=== PATIENT | female | born 1950 | race Caucasian/White ===

== ENCOUNTER 2019-01-03 09:21 | Inpatient (IN) ==
[2019-01-03] MEDS ORDERED: SODIUM CHLORIDE 0.9% 1,000 ML IV STA (10:30)
[2019-01-03 11:10] LABS: Apearance,Urine Slightly Hazy (Clear); Bacteria,Urine Occasional /HPF (Few); Bilirubin,Urine Negative (Negative); Blood, Urine Negative (Negative); Glucose,Urine (UA) Negative (Negative); Ketones,Urine Negative (Negative); Mucus,Urine Occasional /LPF (Occasional); Nitrite,Urine Negative (Negative); Protein,Urine Negative; RBC,Urine 3 /HPF (0-4); Squamous Epithelial Cell,Urine Occasional /HPF (0-10); Urine Color Yellow (Yellow); Urine Specific Gravity 1.006 (1.001-1.035); Urine Urobilinogen < 2.0 EU/DL (0.2-1.0); WBC,Urine 105 /HPF (0-6)
[2019-01-03 11:14] LABS: Basophils # 0.1 10*3/uL (0.0-0.2); Basophils % 0.6 % (0.0-0.8); Eosinophils # 0.1 10*3/uL (0.0-0.87); Eosinophils % 0.7 % (0.00-10.9); Hematocrit 36.8 VOL% (35.7-47.0); Hemoglobin 12.3 GM/DL (12.0-16.0); Immature Granulocytes % 0.7 %; Immature Granulocytes Absolute 0.07 #; Lymphocytes # 1.8 10*3/uL (1.4-4.0); Lymphocytes % 18.7 % (21.3-54.2); Mean Corpuscular HGB Conc 33.4 GM/DL (32-36); Mean Corpuscular Volume 95.3 FL (87-102); Mean Platelet Volume 9.5 FL (9.6-12.0); Neutrophils % 72.3 % (38.7-73.9); Platelet Count 279 T/CUMM (130-400); Red Blood Count 3.86 MC/CUMM (3.8-5.5); Red Cell Distribution Width 12.4 % (9.3-17.3); White Blood Count 9.8 T/CUMM (4-12)
[2019-01-03 11:23] LABS: PT Patient Result 10.8 SECS (9.6-12.2)
[2019-01-03 11:34] LABS: Alanine Aminotransferase 28 U/L (13-56); Albumin 3.7 G/DL (3.4-5.0); Alkaline Phosphatase 55 U/L (45-117); Aspartate Amino Transferase 21 U/L (0-37); Blood Urea Nitrogen 17 MG/DL (7-18); Calcium 8.9 MG/DL (8.5-10.1); Estimated Glom Filtration Rate 58 ML/MIN; Glucose 86 MG/DL (74-106); Osmolality,Calculated 270.1 MOS/KG (273-304); Total Protein 6.6 G/DL (6.4-8.3); Troponin I < 0.015 NG/ML (0.00-0.045)
[2019-01-03 11:41] LABS: Barbiturates Screen,Urine Negative (Negative); Benzodiazepines Screen,Urine Negative (Negative); Cannabinoid Screen,Urine Negative (Negative); Opiate Screen,Urine Negative (Negative); Phencyclidine Screen,Urine Negative (Negative)
[2019-01-03] MEDS ORDERED: cefTRIAXone 1,000 MG in SODIUM CHLORIDE 0.9% 100 ML IV STA (11:52)
[2019-01-03] MEDS ORDERED: ACETAMINOPHEN 325 MG TABLET PO PRN (12:14)
[2019-01-03] MEDS ORDERED: ONDANSETRON 4 MG/2 ML VIAL IV PRN (12:14)
[2019-01-03] MEDS ORDERED: DOCUSATE SODIUM 100 MG CAPSULE PO PRN (12:14)
[2019-01-03] MEDS ORDERED: POTASSIUM CHLORIDE 20 MEQ TABLET PO PRN (12:17)
[2019-01-03] MEDS: ENOXAPARIN 40 MG/0.4 ML SYRINGE SUBCUT SCH (14:00)
[2019-01-03] MEDS: buPROPion XL 150 MG TABLET PO SCH (14:00)
[2019-01-03] MEDS: DEXT 5% NACL 0.45% KCL 20 MEQ 20 MEQ/1,000 ML BAG IV SCH (14:04)
[2019-01-03] MEDS: VENLAFAXINE 75 MG TABLET PO SCH (20:58)
[2019-01-03] MEDS: SIMVASTATIN 10 MG TABLET PO SCH (20:58)
[2019-01-03] MEDS: POTASSIUM BICARB EFFERVESCENT 25 MEQ TABLET PO SCH (20:59)
[2019-01-04] MEDS: DEXT 5% NACL 0.45% KCL 20 MEQ 20 MEQ/1,000 ML BAG IV SCH ×2 (03:31→16:44)
[2019-01-04 05:37] LABS: Basophils # 0.1 10*3/uL (0.0-0.2); Basophils % 0.6 % (0.0-0.8); Eosinophils # 0.2 10*3/uL (0.0-0.87); Eosinophils % 2.2 % (0.00-10.9); Hematocrit 34.9 VOL% (35.7-47.0); Hemoglobin 11.5 GM/DL (12.0-16.0); Immature Granulocytes % 0.2 %; Immature Granulocytes Absolute 0.02 #; Lymphocytes # 2.8 10*3/uL (1.4-4.0); Lymphocytes % 32.7 % (21.3-54.2); Mean Corpuscular Volume 95.1 FL (87-102); Monocytes % 9.8 % (1.7-12.7); Neutrophils % 54.5 % (38.7-73.9); Platelet Count 269 T/CUMM (130-400); Red Blood Count 3.67 MC/CUMM (3.8-5.5); Red Cell Distribution Width 12.6 % (9.3-17.3); White Blood Count 8.5 T/CUMM (4-12)
[2019-01-04 05:52] LABS: Calcium 8.8 MG/DL (8.5-10.1); Osmolality,Calculated 284.8 MOS/KG (273-304)
[2019-01-04 05:53] LABS: Risk Ratio 2.91; VLDL CHOLESTEROL 26.4 MG/DL
[2019-01-04] MEDS ORDERED: cefTRIAXone 2,000 MG in SYRINGE 1 EACH IV SCH (09:00)
[2019-01-04] MEDS: buPROPion XL 150 MG TABLET PO SCH (09:52)
[2019-01-04] MEDS: VENLAFAXINE 75 MG TABLET PO SCH ×2 (09:52→21:18)
[2019-01-04] MEDS: POTASSIUM BICARB EFFERVESCENT 25 MEQ TABLET PO SCH ×2 (09:53→21:18)
[2019-01-04] MEDS: ENOXAPARIN 40 MG/0.4 ML SYRINGE SUBCUT SCH (13:08)
[2019-01-04] MEDS: SIMVASTATIN 10 MG TABLET PO SCH (21:18)
[2019-01-05 06:30] LABS: Basophils # 0.1 10*3/uL (0.0-0.2); Eosinophils # 0.3 10*3/uL (0.0-0.87); Eosinophils % 3.6 % (0.00-10.9); Hematocrit 35.7 VOL% (35.7-47.0); Hemoglobin 11.9 GM/DL (12.0-16.0); Immature Granulocytes % 0.4 %; Immature Granulocytes Absolute 0.03 #; Lymphocytes # 2.9 10*3/uL (1.4-4.0); Lymphocytes % 40.3 % (21.3-54.2); Mean Corpuscular HGB Conc 33.3 GM/DL (32-36); Mean Corpuscular Volume 95.2 FL (87-102); Mean Platelet Volume 9.9 FL (9.6-12.0); Monocytes % 9.4 % (1.7-12.7); Neutrophils % 45.3 % (38.7-73.9); Platelet Count 267 T/CUMM (130-400); Red Blood Count 3.75 MC/CUMM (3.8-5.5); Red Cell Distribution Width 12.8 % (9.3-17.3); White Blood Count 7.2 T/CUMM (4-12)
[2019-01-05] MEDS: DEXT 5% NACL 0.45% KCL 20 MEQ 20 MEQ/1,000 ML BAG IV SCH (06:44)
[2019-01-05 06:46] LABS: Calcium 9.2 MG/DL (8.5-10.1); Osmolality,Calculated 282.8 MOS/KG (273-304)
[2019-01-05] MEDS ORDERED: POTASSIUM CHLORIDE 20 MEQ TABLET PO ONE (08:34)
[2019-01-05] MEDS ORDERED: CIPROFLOXACIN 500 MG TABLET PO SCH (09:00)
[2019-01-05] MEDS: VENLAFAXINE 75 MG TABLET PO SCH (09:00)
[2019-01-05] MEDS: buPROPion XL 150 MG TABLET PO SCH (09:01)
[2019-01-05] MEDS: POTASSIUM BICARB EFFERVESCENT 25 MEQ TABLET PO SCH (09:02)
[2019-01-05 11:58] VITALS: BP 149/80
== END 2019-01-05 13:10 | disposition home or self-care (01) | DRG 689 ==
LOC: N.ED 09:21 → N.EDINP 12:29 → N.5E 12:40
PROVIDERS: ADMIT Hospitalist; ATTEND Hospitalist

== ENCOUNTER 2021-07-15 11:54 | Inpatient (IN) ==
[2021-07-15 13:41] LABS: Basophils % 0.7 % (0.0-0.8); Eosinophils % 0.4 % (0.00-10.9); Hematocrit 28.6 VOL% (35.7-47.0); Immature Granulocytes % 0.7 %; Immature Granulocytes Absolute 0.03 #; Lymphocytes # 1.3 10*3/uL (1.4-4.0); Lymphocytes % 27.4 % (21.3-54.2); Mean Platelet Volume 8.6 FL (9.6-12.0); Neutrophils % 58.8 % (38.7-73.9); Platelet Count 434 T/CUMM (130-400); Red Blood Count 3.01 MC/CUMM (3.8-5.5); Red Cell Distribution Width 13.1 % (9.3-17.3); White Blood Count 4.6 T/CUMM (4-12)
[2021-07-15 13:55] LABS: PT Patient Result 11.1 SECS (10.5-12.0); Partial Thromboplastin Time 24.5 SECS (23.8-32.1)
[2021-07-15 13:57] LABS: Albumin 3.8 G/DL (3.4-5.0); Bilirubin,Total 0.6 MG/DL (0.20-1.00); Osmolality,Calculated 261.5 MOS/KG (273-304); Total Protein 6.9 G/DL (6.4-8.2)
[2021-07-15 15:34] LABS: Bilirubin,Urine Negative (Negative); Blood, Urine Negative (Negative); Glucose,Urine (UA) Negative (Negative); Ketones,Urine Negative (Negative); Nitrite,Urine Negative (Negative); Protein,Urine Negative (Negative); Urine Appearance Clear (Clear); Urine Color Yellow (Yellow); Urine Specific Gravity <= 1.005 (1.001-1.035); Urine Urobilinogen 0.2 eU/dL (<2.0); Urine pH 5.5 (4.5-8.0)
[2021-07-15 15:39] LABS: Mucus,Urine Occasional /LPF (Occasional); Squamous Epithelial Cell,Urine Occasional /HPF (0-10)
[2021-07-15] MEDS ORDERED: NICOTINE 21 MG/24 HR PATCH TRANSDERM PRN (16:09)
[2021-07-15] MEDS ORDERED: ONDANSETRON 4 MG/2 ML VIAL IV PRN (16:09)
[2021-07-15] MEDS ORDERED: GLUCAGON 1 MG VIAL IM PRN (16:09)
[2021-07-15] MEDS ORDERED: guaiFENesin/DM ER 600-30 MG TABLET PO PRN (16:09)
[2021-07-15] MEDS ORDERED: diphenhydrAMINE CAP 25 MG CAPSULE PO PRN (16:09)
[2021-07-15] MEDS ORDERED: hydrALAZINE 20 MG/1 ML VIAL IV PRN (16:09)
[2021-07-15] MEDS ORDERED: POTASSIUM CHLORIDE 20 MEQ TABLET PO STA (16:12)
[2021-07-15] MEDS ORDERED: DEXTROSE 10% 250 ML BAG IV PRN (16:21)
[2021-07-15 16:37] LABS: Arterial Base Excess iSTAT 0 MMOL/L (-2.5-2.5); Arterial Bicarbonate iSTAT 21.6 MMOL/L (20-26); Arterial O2 Saturation iSTAT 100 % (95-100); Arterial PCO2 iSTAT 24 MM HG (35-48); Arterial PO2 iSTAT 172 MM HG (80-95); Arterial Total CO2 iSTAT 22 MMO/L (23-27); Arterial pH iSTAT 7.561 (7.35-7.45)
[2021-07-15] MEDS: HEPARIN 5,000 UNIT/1 ML VIAL SUBCUT SCH (17:21)
[2021-07-15 17:43] LABS: Barbiturates Screen,Urine Negative (Negative); Benzodiazepines Screen,Urine Negative (Negative); Cannabinoid Screen,Urine Negative (Negative); Opiate Screen,Urine Negative (Negative); Phencyclidine Screen,Urine Negative (Negative)
[2021-07-15] MEDS: SODIUM CHLORIDE 0.9% 1,000 ML IV SCH (18:09)
[2021-07-15] MEDS ORDERED: cefTRIAXone 1,000 MG in SODIUM CHLORIDE 0.9% 100 ML IV SCH (20:00)
[2021-07-15] MEDS ORDERED: VANCOMYCIN INJ 1,000 MG in SODIUM CHLORIDE 0.9% 250 ML IV ONE (21:00)
[2021-07-15 22:12] LABS: ABG Base Excess -2.7 MMOL/L (-2.5-2.5); ABG HCO3 22.2 MMOL/L (20-26); ABG Oxygen Saturation 98.8 % (95-100); ABG PCO2 29.2 MM HG (35-48); ABG PH 7.453 (7.35-7.45); ABG TCO2 18.8 MMOL/L (23-27)
[2021-07-15] MEDS: CHOLECALCIFEROL 5,000 UNIT TABLET PO SCH (22:20)
[2021-07-15] MEDS: SIMVASTATIN 10 MG TABLET PO SCH (22:20)
[2021-07-16] MEDS: ACETAMINOPHEN 325 MG TABLET PO PRN (03:00)
[2021-07-16] MEDS: ZALEPLON 5 MG CAPSULE PO PRN ×2 (03:00→19:45)
[2021-07-16] MEDS: SODIUM CHLORIDE 0.9% 1,000 ML IV SCH ×2 (05:02→23:30)
[2021-07-16] MEDS: HEPARIN 5,000 UNIT/1 ML VIAL SUBCUT SCH ×2 (05:02→17:04)
[2021-07-16 05:52] LABS: Basophils # 0.1 10*3/uL (0.0-0.2); Basophils % 0.9 % (0.0-0.8); Eosinophils # 0.1 10*3/uL (0.0-0.87); Eosinophils % 1.5 % (0.00-10.9); Immature Granulocytes % 0.4 %; Immature Granulocytes Absolute 0.02 #; Lymphocytes # 1.7 10*3/uL (1.4-4.0); Lymphocytes % 31.3 % (21.3-54.2); Mean Corpuscular HGB Conc 33.9 GM/DL (32-36); Mean Corpuscular Volume 95.7 FL (87-102); Mean Platelet Volume 8.7 FL (9.6-12.0); Monocytes % 8.2 % (1.7-12.7); Neutrophils % 57.7 % (38.7-73.9); Red Blood Count 2.53 MC/CUMM (3.8-5.5); Red Cell Distribution Width 13.6 % (9.3-17.3); White Blood Count 5.3 T/CUMM (4-12)
[2021-07-16 05:53] LABS: Hematocrit 24.2 VOL% (35.7-47.0); Hemoglobin 8.2 GM/DL (12.0-16.0); Platelet Count 372 T/CUMM (130-400)
[2021-07-16 06:12] LABS: Albumin 2.7 G/DL (3.4-5.0); Bilirubin,Total 0.9 MG/DL (0.20-1.00); Calcium 8.6 MG/DL (8.5-10.1); Osmolality,Calculated 274.4 MOS/KG (273-304); Potassium 3.6 MMOL/L (3.5-5.1)
[2021-07-16] MEDS ORDERED: MAGNESIUM SULF RIDER 2 GM/50 ML PREMIX IV PRN (08:42)
[2021-07-16] MEDS ORDERED: MAGNESIUM SULF RIDER 4 GM/100 ML PREMIX IV PRN (08:42)
[2021-07-16] MEDS ORDERED: POTASSIUM CHLORIDE 20 MEQ TABLET PO PRN (08:43)
[2021-07-16] MEDS ORDERED: VANCOMYCIN INJ 750 MG in SODIUM CHLORIDE 0.9% 250 ML IV SCH (09:00)
[2021-07-16] MEDS: LOSARTAN 50 MG TABLET PO SCH (09:54)
[2021-07-16] MEDS: PANTOPRAZOLE 40 MG TABLET PO SCH (09:54)
[2021-07-16 12:25] LABS: Arterial Base Excess iSTAT -1 MMOL/L (-2.5-2.5); Arterial O2 Saturation iSTAT 99 % (95-100); Arterial PCO2 iSTAT 27 MM HG (35-48); Arterial PO2 iSTAT 116 MM HG (80-95); Arterial Total CO2 iSTAT 22 MMO/L (23-27); Arterial pH iSTAT 7.503 (7.35-7.45)
[2021-07-16] MEDS: CHOLECALCIFEROL 5,000 UNIT TABLET PO SCH (20:29)
[2021-07-16] MEDS: SIMVASTATIN 10 MG TABLET PO SCH (20:29)
[2021-07-17 02:24] LABS: ABG Base Excess -1.8 MMOL/L (-2.5-2.5); ABG HCO3 22.9 MMOL/L (20-26); ABG Oxygen Saturation 98.2 % (95-100); ABG PCO2 30.1 MM HG (35-48); ABG PH 7.459 (7.35-7.45); ABG PO2 96.8 MM HG (80-95); ABG TCO2 19.7 MMOL/L (23-27)
[2021-07-17] MEDS: SODIUM CHLORIDE 0.9% 1,000 ML IV SCH ×2 (03:01→05:47)
[2021-07-17 03:25] LABS: Basophils # 0.1 10*3/uL (0.0-0.2); Basophils % 0.9 % (0.0-0.8); Eosinophils # 0.2 10*3/uL (0.0-0.87); Eosinophils % 2.9 % (0.00-10.9); Hematocrit 25.2 VOL% (35.7-47.0); Hemoglobin 8.6 GM/DL (12.0-16.0); Immature Granulocytes % 0.5 %; Immature Granulocytes Absolute 0.03 #; Lymphocytes # 1.9 10*3/uL (1.4-4.0); Mean Corpuscular HGB Conc 34.1 GM/DL (32-36); Mean Corpuscular Volume 97.3 FL (87-102); Monocytes % 7.3 % (1.7-12.7); Neutrophils % 55.4 % (38.7-73.9); Platelet Count 433 T/CUMM (130-400); Red Blood Count 2.59 MC/CUMM (3.8-5.5); Red Cell Distribution Width 13.8 % (9.3-17.3); White Blood Count 5.8 T/CUMM (4-12)
[2021-07-17 03:36] LABS: Calcium 8.9 MG/DL (8.5-10.1); Osmolality,Calculated 270.7 MOS/KG (273-304); Potassium 3.2 MMOL/L (3.5-5.1)
[2021-07-17] MEDS: HEPARIN 5,000 UNIT/1 ML VIAL SUBCUT SCH ×2 (04:05→17:53)
[2021-07-17] MEDS ORDERED: POTASSIUM CHLORIDE 20 MEQ TABLET PO ONE ×2 (07:30→07:57)
[2021-07-17] MEDS: ACETAMINOPHEN 325 MG TABLET PO PRN ×2 (08:05→19:47)
[2021-07-17] MEDS: PANTOPRAZOLE 40 MG TABLET PO SCH (08:16)
[2021-07-17] MEDS: LOSARTAN 50 MG TABLET PO SCH (08:16)
[2021-07-17] MEDS ORDERED: OLANZapine 2.5 MG TABLET PO PRN (13:11)
[2021-07-17] MEDS ORDERED: TUBERCULIN SKIN TEST 0.1 ML SYRINGE INTRADERM ONE (15:05)
[2021-07-17] MEDS: ZALEPLON 5 MG CAPSULE PO PRN (19:47)
[2021-07-17] MEDS: CHOLECALCIFEROL 5,000 UNIT TABLET PO SCH ×2 (19:47→20:03)
[2021-07-17] MEDS: SIMVASTATIN 10 MG TABLET PO SCH ×2 (19:47→20:02)
[2021-07-18] MEDS: ACETAMINOPHEN 325 MG TABLET PO PRN ×2 (04:00→08:56)
[2021-07-18] MEDS: HEPARIN 5,000 UNIT/1 ML VIAL SUBCUT SCH ×2 (04:00→17:23)
[2021-07-18 08:13] LABS: Osmolality,Calculated 276.4 MOS/KG (273-304); Potassium 4.1 MMOL/L (3.5-5.1)
[2021-07-18] MEDS: PANTOPRAZOLE 40 MG TABLET PO SCH (08:52)
[2021-07-18] MEDS: LOSARTAN 50 MG TABLET PO SCH (08:52)
[2021-07-18] MEDS: CHOLECALCIFEROL 5,000 UNIT TABLET PO SCH (20:08)
[2021-07-18] MEDS: ZALEPLON 5 MG CAPSULE PO PRN ×2 (20:08→21:27)
[2021-07-18] MEDS: SIMVASTATIN 10 MG TABLET PO SCH (20:08)
[2021-07-19] MEDS: HEPARIN 5,000 UNIT/1 ML VIAL SUBCUT SCH (03:36)
[2021-07-19 08:45] VITALS: BP 124/46
[2021-07-19 08:53] LABS: Basophils % 0.7 % (0.0-0.8); Eosinophils # 0.2 10*3/uL (0.0-0.87); Eosinophils % 3.9 % (0.00-10.9); Hematocrit 30.9 VOL% (35.7-47.0); Hemoglobin 10.3 GM/DL (12.0-16.0); Immature Granulocytes % 0.7 %; Immature Granulocytes Absolute 0.04 #; Lymphocytes # 1.9 10*3/uL (1.4-4.0); Lymphocytes % 33.4 % (21.3-54.2); Mean Corpuscular HGB Conc 33.3 GM/DL (32-36); Mean Platelet Volume 8.8 FL (9.6-12.0); Monocytes % 9.9 % (1.7-12.7); Neutrophils % 51.4 % (38.7-73.9); Platelet Count 508 T/CUMM (130-400); Red Blood Count 3.09 MC/CUMM (3.8-5.5); Red Cell Distribution Width 14.1 % (9.3-17.3); White Blood Count 5.6 T/CUMM (4-12)
[2021-07-19] MEDS ORDERED: MAGNESIUM HYDROXIDE SUSP 30 ML UDCUP PO ONE (09:18)
[2021-07-19] MEDS: PANTOPRAZOLE 40 MG TABLET PO SCH (09:25)
[2021-07-19] MEDS: LOSARTAN 50 MG TABLET PO SCH (09:25)
[2021-07-19] MEDS ORDERED: DOCUSATE SODIUM 100 MG CAPSULE PO SCH (21:00)
[2021-07-20] MEDS ORDERED: POLYETHYLENE GLYCOL POWDER 17 GM PACK PO SCH (09:00)
== END 2021-07-19 10:10 | DRG 57 ==
LOC: N.ED 11:54 → SUATTDRO 16:09 → N.EDINP 16:09 → N.TELES 07-16 08:06
PROVIDERS: ADMIT Internal Medicine; ATTEND Internal Medicine